=== PATIENT | male | born 1960 | race Caucasian/White ===

== ENCOUNTER 2024-12-31 12:01 | Inpatient (IN) | payer OTHER ==
[~2024-12-31] VITALS: Ht 177.8 cm; Wt 99.8 kg
[2024-12-31 12:19] VITALS: BP 145/98; PULSE 84; RESP 18; TEMP 98.4; O2SAT 96
[2024-12-31 13:02] VITALS: BP 145/98; PULSE 84; RESP 18; TEMP 98.4; O2SAT 96
[2024-12-31] MEDS ORDERED: Morphine 4mg INJECTION 4 MG/ML INJ IV PRN (13:30)
[2024-12-31] MEDS ORDERED: ONDANSETRON HCL INJ 2MG/ML 2ML 2 MG/ML VIAL IV PRN (13:30)
[2024-12-31] MEDS: SODIUM CHLORIDE 0.9% 1000ML 1,000 ML IV SCH (13:46)
[2024-12-31] MEDS ORDERED: ASPIRIN325 MG PO (14:06)
[2024-12-31] MEDS ORDERED: FISH OIL PO (14:06)
[2024-12-31] MEDS ORDERED: METFORMIN HCL500 MG PO (14:06)
[2024-12-31] MEDS ORDERED: ATORVASTATIN CA20 MG PO (14:06)
[2024-12-31] MEDS ORDERED: OZEMPIC0.25 MG/02 SQ (14:06)
[2024-12-31] MEDS ORDERED: CINNAMON500 MG PO (14:06)
[2024-12-31] MEDS ORDERED: NEXIUM20 MG PO (14:06)
[2024-12-31] MEDS ORDERED: FLAXSEED OIL1000 MG PO (14:06)
[2024-12-31] MEDS ORDERED: LISINOPRIL10 MG PO (14:06)
[2024-12-31] MEDS ORDERED: VITAMIN C500 MG PO (14:06)
[2024-12-31 14:07] LABS: BASOPHILS % 0.2 % (0.0-1.0); EOSINOPHILS # (AUTO) 1.1 (0.0-0.4); EOSINOPHILS % 5.8 % (0.0-6.0); HEMATOCRIT 47.2 % (38.2-49.6); LYMPHOCYTES # (AUTO) 2.4 (1.0-3.2); LYMPHOCYTES % 13.4 % (18.0-39.1); MEAN CORPUSCULAR HEMOGLOBIN 31.3 pg (28-32); MEAN CORPUSCULAR VOLUME 86.9 fL (81-99); MONOCYTES # (AUTO) 1.3 (0.2-0.8); MONOCYTES % 6.9 % (4.4-11.3); NEUTROPHILS # (AUTO) 13.3 (2.1-6.9); NEUTROPHILS % 73.2 % (38.7-80.0); PLATELET COUNT 263 x10e3/uL (140-360); RED BLOOD COUNT 5.43 x10e6/uL (4.3-5.7); WHITE BLOOD COUNT 18.14 x10e3/uL (4.8-10.8)
[2024-12-31] MEDS ORDERED: DEXTROSE 50% SYRINGE 50 ML IV PRN (14:15)
[2024-12-31 14:31] LABS: ALBUMIN 3.5 g/dL (3.5-5.0); ALBUMIN/GLOBULIN RATIO 1.4 (0.8-2.0); ANION GAP 15.3 mmol/L (8-16); BILIRUBIN,TOTAL 2.4 mg/dL (0.2-1.2); CALCIUM 9.2 mg/dL (8.4-10.2); CREATININE, SERUM 0.84 mg/dL (0.72-1.25); POTASSIUM 4.3 mmol/L (3.5-5.1)
[2024-12-31] MEDS: INSULIN REGULAR, HUMAN 100 UNIT/1 ML SQ SCH (16:06)
[2024-12-31 16:19] VITALS: BP 139/82; PULSE 77; RESP 18; TEMP 98.3; O2SAT 96
[2024-12-31 19:47] VITALS: BP 117/80; PULSE 85; RESP 18; TEMP 99.3; O2SAT 99
[2024-12-31] MEDS: MAGNESIUM SULFATE 2GM/50ML 50 ML IV ONE (22:11)
[2024-12-31 23:30] VITALS: BP 118/72; PULSE 84; RESP 20; TEMP 99; O2SAT 99
[2025-01-01 04:00] VITALS: BP 111/73; PULSE 81; RESP 20; TEMP 98.5; O2SAT 99
[2025-01-01 05:41] LABS: BASOPHILS % 0.2 % (0.0-1.0); EOSINOPHILS # (AUTO) 1.5 (0.0-0.4); HEMATOCRIT 41.8 % (38.2-49.6); LYMPHOCYTES # (AUTO) 3.6 (1.0-3.2); LYMPHOCYTES % 26.4 % (18.0-39.1); MEAN CORPUSCULAR HEMOGLOBIN 31.5 pg (28-32); MEAN CORPUSCULAR HGB CONC 35.9 g/dL (31-35); MEAN CORPUSCULAR VOLUME 87.8 fL (81-99); MONOCYTES # (AUTO) 1.2 (0.2-0.8); NEUTROPHILS # (AUTO) 7.2 (2.1-6.9); PLATELET COUNT 226 x10e3/uL (140-360); RED BLOOD COUNT 4.76 x10e6/uL (4.3-5.7); RED CELL DISTRIBUTION WIDTH 12.8 % (11.7-14.4); WHITE BLOOD COUNT 13.49 x10e3/uL (4.8-10.8)
[2025-01-01 06:18] LABS: ALBUMIN 3.2 g/dL (3.5-5.0); ALBUMIN/GLOBULIN RATIO 1.6 (0.8-2.0); ANION GAP 13.7 mmol/L (8-16); BILIRUBIN,TOTAL 2.2 mg/dL (0.2-1.2); CALCIUM 8.5 mg/dL (8.4-10.2); CREATININE, SERUM 0.81 mg/dL (0.72-1.25); MAGNESIUM 1.9 MG/DL (1.3-2.1); POTASSIUM 3.7 mmol/L (3.5-5.1); TOTAL PROTEIN 5.2 g/dL (6.5-8.1)
[2025-01-01 08:05] VITALS: BP 111/73; PULSE 81; RESP 20; TEMP 98.5; O2SAT 99
[2025-01-01 08:38] VITALS: BP 104/70; PULSE 81; RESP 18; TEMP 98.4; O2SAT 96
[2025-01-01 11:29] VITALS: BP 130/77; PULSE 82; RESP 18; TEMP 98.5; O2SAT 95
[2025-01-01 15:52] VITALS: BP 125/78; PULSE 79; RESP 18; TEMP 98.4; O2SAT 97
[2025-01-01] MEDS ORDERED: ACETAMINOPHEN 325 MG TAB PO PRN (19:15)
[2025-01-01 20:00] VITALS: BP 147/84; PULSE 73; RESP 18; TEMP 98.3; O2SAT 98
[2025-01-02 04:00] VITALS: BP 146/79; PULSE 70; RESP 18; TEMP 98.6; O2SAT 96
[2025-01-02 05:23] LABS: BASOPHILS % 0.3 % (0.0-1.0); EOSINOPHILS # (AUTO) 1.5 (0.0-0.4); EOSINOPHILS % 15.1 % (0.0-6.0); HEMATOCRIT 41.9 % (38.2-49.6); HEMOGLOBIN 14.4 g/dL (14.0-18.0); LYMPHOCYTES # (AUTO) 2.6 (1.0-3.2); LYMPHOCYTES % 25.3 % (18.0-39.1); MEAN CORPUSCULAR HEMOGLOBIN 31.2 pg (28-32); MEAN CORPUSCULAR HGB CONC 34.4 g/dL (31-35); MEAN CORPUSCULAR VOLUME 90.9 fL (81-99); MONOCYTES # (AUTO) 0.9 (0.2-0.8); MONOCYTES % 8.4 % (4.4-11.3); NEUTROPHILS # (AUTO) 5.1 (2.1-6.9); NEUTROPHILS % 50.3 % (38.7-80.0); PLATELET COUNT 201 x10e3/uL (140-360); RED BLOOD COUNT 4.61 x10e6/uL (4.3-5.7); RED CELL DISTRIBUTION WIDTH 13.1 % (11.7-14.4); WHITE BLOOD COUNT 10.17 x10e3/uL (4.8-10.8)
[2025-01-02 06:06] LABS: CALCIUM 8.3 mg/dL (8.4-10.2); CREATININE, SERUM 0.8 mg/dL (0.72-1.25)
[2025-01-02 09:28] VITALS: BP 132/83; PULSE 73; RESP 18; TEMP 98.2; O2SAT 98
[2025-01-02 09:30] VITALS: BP 132/83; PULSE 73; RESP 18; TEMP 98.2; O2SAT 98
[2025-01-02 10:52] VITALS: BP 137/79; PULSE 79; RESP 18; TEMP 98.1; O2SAT 95
== END 2025-01-02 14:20 | disposition home or self-care (01) | DRG 390 ==
LOC: MED/SURG 12:01 → OBSVTOIN 13:23
PROVIDERS: ADMIT Internal Medicine; ATTEND Internal Medicine
DX: K56.7 Ileus, unspecified (principal); E11.9 Type 2 diabetes mellitus without complications; E78.5 Hyperlipidemia, unspecified; E66.811 Obesity, class 1; D72.829 Elevated white blood cell count, unspecified; I10 Essential (primary) hypertension; R19.7 Diarrhea, unspecified; Z68.31 Body mass index [BMI] 31.0-31.9, adult; K57.90 Diverticulosis of intestine, part unspecified, without perforation or abscess without bleeding; K80.20 Calculus of gallbladder without cholecystitis without obstruction; T38.3X5A Adverse effect of insulin and oral hypoglycemic [antidiabetic] drugs, initial encounter; Z79.85 Long-term (current) use of injectable non-insulin antidiabetic drugs; Z79.84 Long term (current) use of oral hypoglycemic drugs; Z79.82 Long term (current) use of aspirin
CPT/HCPCS: 36415; 74018; 80048; 80053; 82948; 83036; 83735; 85025; J2470; J3475; J7030